=== PATIENT | female | born 1980 | race Caucasian/White ===

== ENCOUNTER → 2020-08-29 | Outpatient (CLI) | payer BC | LOC: MC.RAD 07:15 | DX: Z12.31 Encounter for screening mammogram for malignant neoplasm of breast (principal) ==

== ENCOUNTER → 2021-10-08 | Outpatient (CLI) | payer BC | LOC: MC.RAD 07:22 | DX: Z12.31 Encounter for screening mammogram for malignant neoplasm of breast (principal) ==

== ENCOUNTER 2022-02-02 19:08 | Observation (INO) | payer BC ==
[~2022-02-02] VITALS: Ht 157.5 cm; Wt 83.6 kg
[2022-02-02 19:42] LABS: BASO # 0.1 K/mm3 (0.0-0.2); BASO % 0.5 % (0.0-2.0); EOS # 0.1 K/mm3 (0.0-0.7); EOS % 0.5 % (0.0-4.0); GRAN # 11.3 K/mm3 (1.4-6.5); GRAN % 70.7 % (42.2-75.2); LYMPH # 3.6 K/mm3 (1.2-3.4); LYMPH % 22.8 % (20.0-51.0); MEAN CELL VOLUME 86 fl (80.0-100.0); MEAN CORPUSCULAR HEMOGLOBIN 29 pg (27-31); MEAN CORPUSCULAR HGB CONC 34 g/dl (33.0-37.0); MONO # 0.8 K/mm3 (0.1-0.6); MONO % 5.1 % (1.7-9.3); PLATELET COUNT 405 K/mm3 (130-400); RED BLOOD COUNT 4.76 M/mm3 (4.10-5.30)
[2022-02-02 19:59] LABS: ALBUMIN 4.1 gm/dL (3.5-5.0); BILIRUBIN,TOTAL 0.5 mg/dL (0.2-1.2); CALCIUM 9.6 mg/dL (8.4-10.2); CREATININE, serum 0.78 mg/dL (0.57-1.11); POTASSIUM 3.8 mmol/L (3.5-4.5); TOTAL PROTEIN 8.3 gm/dL (6.2-8.1)
[2022-02-02 20:16] LABS: COLLECTION METHOD CLEAN CATCH
[2022-02-02 20:28] LABS: MUCOUS Present (NOT PRESENT); URINE BACTERIA None Seen /hpf (NONE SEEN)
[2022-02-02 20:29] LABS: URINE APPEARANCE Clear (CLEAR/HAZY); URINE BLOOD TRACE-INTACT (NEGATIVE); URINE COLOR Yellow (YELLOW); URINE GLUCOSE Negative (NEGATIVE); URINE KETONE Negative (NEGATIVE); URINE NITRATE Negative (NEGATIVE); URINE PROTEIN(semi-quant) Negative (NEGATIVE); URINE UROBILINOGEN 0.2 E.U/dL (0.2-1.0)
--- NOTE | 2022-02-02 21:45 | NUR ---
PT admitted from ED for RUQ abd pain, rating pain now 8/10, Dr Campos assessed pt in ED, orders written. pt alert and oriented, up ad disha in room, INT present in right wrist.
[2022-02-02 22:04] VITALS: BP 144/65; PULSE 98; TEMP 98.1
[2022-02-02] MEDS ORDERED: LEXAPRO20 MG PO (22:05)
[2022-02-02] MEDS ORDERED: DESYREL 50MG50 MG PO (22:06)
[2022-02-03] VITALS (11 sets, daily range): BP systolic 101–132; BP diastolic 55–80; PULSE 84–101; TEMP 97.9–98.8
--- NOTE | 2022-02-03 06:49 | NUR ---
pt on IVF @75cc/hr, morphine given for pain x3 since admission, resting quietly, up ad disha to restroom. NPO for surgery this am.
[2022-02-03 07:05] LABS: ALBUMIN 3.5 gm/dL (3.5-5.0); CALCIUM 9.2 mg/dL (8.4-10.2); CREATININE, serum 0.74 mg/dL (0.57-1.11); POTASSIUM 3.7 mmol/L (3.5-4.5); TOTAL PROTEIN 7.3 gm/dL (6.2-8.1)
--- NOTE | 2022-02-03 07:13 | NUR ---
PT IN THE BATHROOM, C/O CASAS, NO FURTHER NEEDS AT THIS TIME
--- NOTE | 2022-02-03 14:15 | NUR ---
SW met with pt to complete intake. Pt lives at home with her , Vladimir @ [phone]. Pt independnent on all ADLS and does not use any DME. PCP is Tara Cabrera and gets medications from [facility] and has no trouble obtaining cost. [facility] none appointed and not interested at this time. SW await and follow. DC: Home w/spouse.
[2022-02-03] MEDS ORDERED: NORCO 325 MG-51 TAB PO (16:02)
--- NOTE | 2022-02-03 17:04 | NUR ---
recvd pt from pacu, aox4, 2L NC, BED IN LOW POSITION AND VITALS HOOKED UP, FLUIDS RUNNING
[2022-02-04] VITALS: BP 107/55; PULSE 87; TEMP 98.6
[2022-02-04 04:05] VITALS: BP 106/63; PULSE 73; TEMP 97.8
--- NOTE | 2022-02-04 05:53 | NUR ---
pain controlled with motrin and norco, tolerating regular diet, voiding, incisions to abd c/d/i, ambulating in room ad disha
[2022-02-04 07:24] VITALS: BP 111/66; PULSE 84; TEMP 98.2
--- NOTE | 2022-02-04 10:29 | NUR ---
PATIENT ALERT AND ORIENTED X4. VSS. PATIENT COMPLAINS OF PAIN 6/10, REQUEST PAIN MEDICATION. IV TO RIGHT WRIST SALINE LOCKED. PATIENT RESTING IN BED WITH CALL LIGHT NEAR.
== END 2022-02-04 11:21 | disposition home or self-care (01) ==
LOC: COL.ER 19:08 → SURG 21:02
PROVIDERS: Emergency Medicine; ADMIT Surgery
DX: K80.12 Calculus of gallbladder with acute and chronic cholecystitis without obstruction (principal); K82.1 Hydrops of gallbladder
CPT/HCPCS: G0378; J0330; J0690; J1100; J1170; J1885; J2270; J2405; J2543; J2550; J2704; J3010; J7120; Q9967